=== PATIENT | female | born 1985 | race Hispanic/Latino ===

== ENCOUNTER 2018-11-04 09:49 | Emergency (ER) | payer OTHER, SELFPAY ==
[2018-11-04 10:30] LABS: #Basophils 0.1 thou/uL (0.0-0.2); #Lymphocytes 2.1 thou/uL (1.20-3.40); #Monocytes 0.4 thou/uL (0.11-0.59); %Basophils 1.2 % (0.0-1.0); %Eosinophils 0.5 % (0.0-10.0); %Lymphocytes 21.9 % (21.0-51.0); %Monocytes 4.1 % (0.0-10.0); %Neutrophils 72.4 % (42.0-75.0); Hemoglobin 12.3 g/dL (12.0-16.0); Mean Corpuscular HGB CONC 33.1 g/dL (32.0-36.0); Mean Corpuscular Hemoglobin 27.3 pg (27.0-31.0); Mean Corpuscular Volume 82.6 fL (78.0-98.0); Mean Platelet Volume 6.6 fL (7.4-10.4); Platelet Count 413 thou/uL (130-400); RBC Distribution Width 13.5 % (11.5-14.5); Red Blood Cell (RBC) Count 4.49 mill/uL (4.20-5.40); White Blood Cell (WBC) Count 9.6 thou/uL (4.8-10.8)
[2018-11-04 11:40] LABS: Bilirubin Negative (Negative); Blood, Urine Large (Negative); Clarity CLEAR (Clear); Glucose, Urine (Dipstick) Negative (Negative); Leukocyte Negative (Negative); Nitrite Negative (Negative); Protein, Urine (Dipstick) Negative (Neg-Trace); Specific Gravity, Urine 1.011 (1.002-1.036); Urobilinogen 0.2 mg/dL (0.2-1.0)
[2018-11-04 11:44] LABS: Bacteria/HPF None Seen HPF (None Seen); Hyaline Casts/LPF 0-3 HYALINE CAST LPF (0-3 Hyaline); Pathc Cast-AUWi Flag 0.14 (0-2.49); Squamous Epithelial 0-3 HPF (0-3); WBC/HPF 0-3 HPF (0-3)
[2018-11-04 12:10] LABS: ALT (SGPT) 18 U/L (8-55); AST (SGOT) 22 U/L (5-34); Albumin 4.2 g/dL (3.5-5.0); Alkaline Phosphatase 58 U/L (40-150); Anion Gap 15 mmol/L (10-20); BUN (Urea Nitrogen) 5 mg/dL (7.0-18.7); Bilirubin, Total 0.5 mg/dL (0.2-1.2); Calc. Creatinine Clearance 0 mL/min (70-130); Calcium 9.5 mg/dL (7.8-10.44); Carbon Dioxide 18 mmol/L (22-29); Chloride 108 mmol/L (98-107); Estimated GFR-MDRD Greater than 90; Globulin 3.5 g/dL (2.4-3.5); Glucose 100 mg/dL (70-105); Potassium 4.2 mmol/L (3.5-5.1); Protein, Total 7.7 g/dL (6.0-8.3); Sodium 137 mmol/L (136-145)
--- NOTE | 2018-11-04 12:19 | ULT ---
PELVIC ULTRASOUND: Date: 11/04/18 HISTORY: Positive beta HCG. Right lower quadrant pain and vaginal bleeding. FINDINGS: Real-time imaging of the pelvis was obtained transabdominally, as well as with an endovaginal probe. This shows a uterus measuring 8.9 cm in length. Endometrium is in the 6-7 mm range. Left ovary is not visualized. There is a complex mass measuring approximately 6.0 cm in the right adn exa. I do not see a definite ectopic, but this is an abnormal appearance to the adnexal region. There is some free fluid in the cul-de-sac region and anterior to the uterus. IMPRESSION: 1. No evidence of an intrauterine . 2. Nonvisualization of the left ovary. 3. Complex right adnexal mass. This would have to be viewed with suspicion for an ectopic given patient's clinical and lab findings. Findings discussed with Deb Quintero. CODE CR. POS: [facility]
[2018-11-04] MEDS ORDERED: Acetaminophen/Codeine 30-300mg Tablet ONE (13:56)
[2018-11-04] MEDS ORDERED: Morphine 4 MG/ML VIAL ONE (15:06)
--- NOTE | 2018-11-04 19:37 | CON ---
DATE OF CONSULTATION: 11/04/2018 CHIEF COMPLAINT: Positive test and abdominal pain. HISTORY OF PRESENT ILLNESS: Ms. Kiran Paredes is a 33-year-old , G2, P0, AB1 with a reported last menstrual period of 08/30/2018, who has been followed at [facility] for bleeding throughout her . She states that she has been followed there with ultrasounds and beta-hCGs and that these have been climbing, but that no evidence of an intrauterine had ever been seen there. She presents to the ER now complaining of lower abdominal discomfort. She has had some vaginal spotting. PAST OB HISTORY; includes 1 spontaneous miscarriage in the first trimester, which did not require D and C. Of note is the fact that she saw Dr. Gregory, who is an infertility specialist, who travels here from [place] for infertility 3 years ago. She apparently had a hysterosalpingogram that showed complete blockage on the left side. She states she underwent "one round of fertility treatment" and this did not result in . PAST MEDICAL HISTORY: None. PAST SURGICAL HISTORY: None. CURRENT MEDICATIONS: None. ALLERGIES: NO KNOWN ALLERGIES. SOCIAL HISTORY: She denies tobacco, alcohol, or drug use. FAMILY HISTORY: Unremarkable. REVIEW OF SYSTEMS: She denies nausea, vomiting, fever, chills, dizziness, or lightheadedness. PHYSICAL EXAMINATION: During my interview with her in the ER; VITAL SIGNS: Her blood pressure is 137/81, and her pulse is 77. She is afebrile. GENERAL: She is in no acute distress. ABDOMEN: Soft and nontender. There is no guarding or rebound. PELVIC: Deferred, but it could be seen that there is no vaginal bleeding. LABORATORY DATA: White count 9.6, hemoglobin and hematocrit 12.3 and 37.1 respectively, and platelet count is 413. Chemistry show a BUN of 5 and a creatinine of 0.57. Her total bilirubin is 0.5. Her AST and ALT are 22 and 18 respectively. Her beta-hCG returns 4660. Ultrasound shows an empty uterus. There is a tubo-ovarian mass that measures 6 cm. The ovary and tubal complex measurement are considered as 1. There is only a small amount of fluid in the cul-de-sac. ASSESSMENT: Ectopic PLAN: The options of surgical management versus methotrexate treatment were reviewed with her in detail. The patient is strongly desirous of fertility and as she has been known to have complete blockage on the left side and this ectopic appears to be on the right side, she would strongly wish at this time to proceed with medical management. The nature of methotrexate treatment was described to her in detail with its risks and benefits. Plan at this time is to administer 50 mg/m2 and to have her return on day 4 and then again on day 7 to look for a decline in beta-hCG and to review clinical course. She understands that should she experience dizziness, lightheadedness, or other signs of hemodynamically instability, that she is to return to the ER as soon as possible. She states that she was about 10 minutes from the hospital. The patient understood all that was presented to her in detail. Orders were left for methotrexate 50 mg/m2 IM with a dose to be calculated by the pharmacist. The ER personnel will arrange for followup for her in 4 days.. Job ID: [id number] MTDD
== END 2018-11-04 16:20 | disposition home or self-care (01) ==
LOC: ERS 09:49
DX: O00.90 Unspecified ectopic pregnancy without intrauterine pregnancy (principal); O99.341 Other mental disorders complicating pregnancy, first trimester; F32.9 Major depressive disorder, single episode, unspecified; F41.9 Anxiety disorder, unspecified; Z3A.01 Less than 8 weeks gestation of pregnancy
CPT/HCPCS: 76856; 80053; 81003; 81015; 84702; 85025; 86900; 86901; 96361; 96372; 96374; J2270; J9250

== ENCOUNTER 2018-11-08 09:50 | Emergency (ER) | payer OTHER, SELFPAY ==
--- NOTE | 2018-11-08 11:50 | ULT ---
ULTRASOUND PELVIC TRANSVAGINAL WITH DOPPLER: Date: 11/08/18 HISTORY: Ectopic . COMPARISON: Ultrasound dated 11/04/18. FINDINGS: There is a similar appearance in the right adnexal mass which has not grown in size. No free fluid in the pelvis. No intrauterine . The uterus measures 10.2 x 4.7 x 5.4 cm. Endometrial thickness is 6.0 mm. Left ovary is not seen. IMPRESSION: Similar size and appearance of the complex right adnexal mass with flow and without rupture. POS: [facility]
--- NOTE | 2018-11-08 12:05 | PDOC.EVN ---
Event Note - Event Note Event Note: 11/08/09 at 1200, Lab Check: Discussed with ER Provider on phone. S/P MTX for presumed ectopic. BHCGs: D1....4660 D4....5412 D7 is on 11/11 The small rise in BHCG is expected as MTX begins to have effect. The delta from D4 to D17 should be >/= 15% drop. Patient feels clinically better. Sono in ED with no free fluid in pelvis...stable findings. OK to follow up as scheduled.
== END 2018-11-08 12:00 | disposition home or self-care (01) ==
LOC: ERS 09:50
DX: O00.90 Unspecified ectopic pregnancy without intrauterine pregnancy (principal)
CPT/HCPCS: 36415; 76856; 84702

== ENCOUNTER 2018-11-11 12:32 | Emergency (ER) | payer OTHER ==
[2018-11-11 13:07] LABS: BHCG - Serum POSITIVE (NEGATIVE); Pregs Control Background? CLEAR/WHITE (CLR/WHITE); Pregs Control Bar Appear? YES (CONTROL BAR)
[2018-11-11 13:29] LABS: Bilirubin Negative (Negative); Blood, Urine Large (Negative); Clarity CLEAR (Clear); Glucose, Urine (Dipstick) Negative (Negative); Leukocyte Trace (Negative); Nitrite Negative (Negative); Protein, Urine (Dipstick) Negative (Neg-Trace); Specific Gravity, Urine 1.009 (1.002-1.036); Urobilinogen 0.2 mg/dL (0.2-1.0); pH, Urine 7.5 (5.0-9.0)
[2018-11-11 13:36] LABS: RBC/HPF 0-3 HPF (0-3)
[2018-11-11 13:37] LABS: Bacteria/HPF Rare-Few HPF (None Seen); Hyaline Casts/LPF NONE SEEN LPF (0-3 Hyaline); WBC/HPF 0-3 HPF (0-3)
--- NOTE | 2018-11-11 14:50 | ULT ---
PELVIC ULTRASOUND: COMPARISON: 11/08/2018. HISTORY: Ectopic with right adnexal mass. TECHNIQUE: Multiplanar, foley scale, and color Doppler images were obtained in a transabdominal and transvaginal pelvic ultrasound. Spectral analysis of the Doppler waveforms of ovaries was performed. FINDINGS: The uterus is normal in size and appearance without focal abnormality. The endometrial stripe is nor mal in thickness measuring 7 mm. A small amount of free fluid is seen in the pelvis. This fluid is simple and not complex. There is a mass in the right adnexal region which is heterogeneous in appearance. This may have slightly decr eased in size compared to the prior examination and now measures 5.5 x 4.6 cm in size. No obvious ge stational sac or pole are seen within this complex mass. IMPRESSION: Slight decreased size of right adnexal mass. POS: [facility]
== END 2018-11-11 14:50 | disposition home or self-care (01) ==
LOC: ERS 12:32
DX: O00.90 Unspecified ectopic pregnancy without intrauterine pregnancy (principal)
CPT/HCPCS: 36415; 76856; 81003; 81015; 84702; 84703